=== PATIENT | female | born 2000 | race Caucasian/White ===

== ENCOUNTER → 2021-03-19 | Outpatient (CLI) | payer OTHER ==
--- NOTE | 2021-03-19 16:33 | RAD ---
XR BILATERAL HIP (WITH OR WITHOUT PELVIS) LEFT 2 VIEWS History: Reason: LEFT HIP PAIN, TRIPPED UP THE STAIRS / Spl. Instructions: / History: Technique: PA view of the pelvis and 2 additional views of the left hip. Comparison: None. Findings: Normal alignment. No fracture. IUD projecting over the pelvis. Sclerotic lesion within the left femor al neck, likely bone island. Impression: 1. No acute osseous abnormality. Electronically signed by: Rodrigo Gomez DO (03/19/2021 4:30 PM) [facility]
== END ==
LOC: RAD 13:52
PROVIDERS: ATTEND Physician Assistant
DX: M25.552 Pain in left hip (principal)
CPT/HCPCS: 73502